=== PATIENT | male | born 1990 | race Caucasian/White ===

== ENCOUNTER 2022-05-05 19:07 | Emergency (ER) | payer OTHER ==
[2022-05-05 21:01] LABS: HEMOGLOBIN 14.1 gm/dl (14.0-17.5); RED BLOOD COUNT 4.57 M/UL (4.20-5.50); WHITE BLOOD COUNT 18.4 K/UL (4.5-11.0)
[2022-05-05 21:22] LABS: BUN/CREATININE RATIO 10 (0-10)
== END 2022-05-06 09:10 | disposition short-term general hospital (02) ==
LOC: ER1 19:07
PROVIDERS: Student in an Organized Health Care Education/Training Program
DX: A41.9 Sepsis, unspecified organism (principal); R10.9 Unspecified abdominal pain; D72.829 Elevated white blood cell count, unspecified; R10.813 Right lower quadrant abdominal tenderness; R00.0 Tachycardia, unspecified; I10 Essential (primary) hypertension; E11.9 Type 2 diabetes mellitus without complications; Z20.822 Contact with and (suspected) exposure to COVID-19
CPT/HCPCS: 0240U; 71045; 80053; 82962; 83605; 83690; 85025; 85652; 86140; 87040; 96374; 96375; 96376; 99285; J1170; J1335; J2405; Q9967